=== PATIENT | female | born 1960 | race Two or more races ===

== ENCOUNTER → 2024-01-14 | Emergency (ER) | payer OTHER ==
[~2024-01-14] VITALS: Ht 165.1 cm; Wt 56.7 kg
[~2024-01-14] MED LIST: CORTISPORIN EAR10 M1 OPHT
== END | disposition home or self-care (01) ==
LOC: ER 07:37
DX: H61.20 Impacted cerumen, unspecified ear (principal); H93.8X3 Other specified disorders of ear, bilateral; Z88.8 Allergy status to other drugs, medicaments and biological substances